=== PATIENT | female | born 1960 | race Caucasian/White ===

== ENCOUNTER 2020-12-18 17:02 | Emergency (ER) | payer SELFPAY ==
[2020-12-18 17:09] VITALS: BP 113/74; PULSE 89; RESP 16; TEMP 36.9; O2SAT 98; BMI 23.1
[2020-12-18 17:12] VITALS: BP 113/74; PULSE 80; RESP 18; O2SAT 98
--- NOTE | 2020-12-18 17:13 | XRR_ITS ---
PROCEDURE INFORMATION: Exam: XR Chest, 1 View Exam date and time: 12/18/2020 5:15 PM Age: 60 years old Clinical indication: Chest pain; Additional info: Cp TECHNIQUE: Imaging protocol: XR of the chest Views: 1 view. COMPARISON: CR Chest 1 [place] [id number] 09/24/2018 5:43 PM FINDINGS: Lungs: Unremarkable. No consolidation. Pleural spaces: Unremarkable. No pleural effusion. No pneumothorax. Heart/Mediastinum: Unremarkable. No cardiomegaly. Bones/joints: Unremarkable. XR/XR chest 1V portable [id number] IMPRESSION: No acute findings.
--- NOTE | 2020-12-18 17:13 | ECG_ITS ---
[facility] Test Date: 2020-12-18 Pat Name: Paloma Del Castillo Department: Room: Gender: Female Presentation Specialist: : [id number] Requested By: Leonard David Order Number: [id number] Anni MD: Melissa Ann M.D. Measurements Intervals [place] Rate: 75 P: 63 [place]: 166 QRS: 68 QRSD: 90 T: 75 QT: 384 QTc: 429 Interpretive Statements SINUS RHYTHM POSSIBLE RIGHT VENTRICULAR CONDUCTION DELAY [RSR (QR) IN V1/V2] Compared to ECG 09/25/2018 06:15:09 No significant changes Electronically Signed On 12-18-2020 19:25:43 MARKET MASTER by Melissa Ann M.D. [id number]
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
[2020-12-18] MEDS: ondansetron 2 mg/ML SDV 2 mL 4 MG IVP (17:33)
[2020-12-18] MEDS: aspirin 81 mg Chew Tablet 324 MG PO (17:33)
[2020-12-18 17:43] LABS: Basophils % 0.5 %; Eosinophils # 0.1 10^3/uL (0.0-0.8); Eosinophils % 2.3 %; Hematocrit 42.2 % (37.0-47.0); Hemoglobin 14.1 g/dL (11.5-15.3); Lymphocytes # 1.8 10^3/uL (0.8-4.8); Lymphocytes % 31.6 %; Mean Corpuscular HGB Conc 33.4 g/dL (30.0-36.0); Mean Corpuscular Hemoglobin 32.2 pg (28.0-34.0); Mean Corpuscular Volume 96.3 fL (81-99); Mean Platelet Volume 11.4 fL (7.4-10.4); Monocytes # 0.3 10^3/uL (0.2-0.9); Monocytes % 5.9 %; Neutrophils # 3.31 10^3/uL (1.8-7.7); Neutrophils % 59.5 %; Nucleated Red Blood Cells % 0 %; Platelet Count 248 10^3/cmm (130-400); Red Blood Count 4.38 10^6/uL (4.1-5.3); Red Cell Distribution Width 13.5 % (12.1-15.1); White Blood Count 5.6 10^3/uL (4.0-10.0)
[2020-12-18] MEDS: nitroglycerin 0.4 mg sublingual Tablet SUBLINGUAL (17:51)
[2020-12-18 17:52] LABS: D Dimer 0.52 ug/mIFEU (0-0.59)
[2020-12-18 18:04] LABS: Troponin(5th) Baseline 6 ng/L (0-10)
[2020-12-18 18:10] LABS: Urine Appearance Clear (CLEAR); Urine Color Straw (Yellow)
[2020-12-18 18:11] LABS: Add Urine Culture? No; Add Urine Microscopic? YES; Bacteria Urine TRACE /hpf; Bilirubin Urine Neg (Negative); Blood Urine 2+ (Negative); Glucose Urine UA Norm (Normal); Ketones Urine Negative (Negative); Leukocyte Esterase Urine Negative (Negative); Nitrate Urine Negative (Negative); Protein Urine Neg (Negative); RBC Urine RARE /hpf (0-2); Specific Gravity, Urine 1.005 (1.005-1.030); Squamous Epithelial Cell Urine 0-4 /hpf (0-5); Urobilinogen Urine Norm (Negative); WBC Urine 0-4 /hpf (0-5); pH Urine 5 (5-7)
[2020-12-18 18:13] LABS: Alanine Aminotransferase 15 U/L (0-33); Albumin Level 4.2 g/dL (3.5-5.2); Alcohol Level 84 mg/dL (0-10); Alkaline Phosphatase 128 IU/L (35-105); Anion Gap 14.7 (5-19); Aspartate Amino Transferase 15 U/L (0-32); Blood Urea Nitrogen 6 mg/dL (8-23); Calcium 9.1 mg/dL (8.5-10.5); Carbon Dioxide 24 mmol/L (22-29); Chloride 104 mmol/L (98-107); Globulin 2.6 g/dL (1.3-4.6); Glucose 99 mg/dL (65-115); NT Pro B Type Natriuretic Pept 106 pg/mL (0-125); Osmolality Calculated 286 mOsm/kg (285-295); Potassium 3.7 mmol/L (3.5-5.1); Sodium 139 mmol/L (136-145); Total Bilirubin 0.2 mg/dL (0.15-1.2); Total Protein 6.8 g/dL (6.6-8.7)
[2020-12-18 18:13] LABS: Amphetamines Screen Urine Negative (Negative); Barbiturates Screen Urine Negative (Negative); Benzodiazepines Screen Urine Negative (Negative); Cocaine Screen Urine Negative (Negative); Opiate Screen Urine Negative (Negative); PCP Screen Urine Negative (Negative); THC Screen Urine Negative (Negative)
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
[2020-12-18 19:12] VITALS: BP 114/67; PULSE 76
--- NOTE | 2020-12-18 19:13 | ECG_ITS ---
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 Measurements Intervals [place] Rate: 85 P: 67 IN: 151 QRS: 69 QRSD: 98 T: 77 QT: 360 QTc: 430 Interpretive Statements SINUS RHYTHM POSSIBLE RIGHT VENTRICULAR CONDUCTION DELAY [RSR (QR) IN V1/V2] MINIMAL ST DEPRESSION [0.025+ mV ST DEPRESSION] Compared to ECG 09/25/2018 06:15:09 ST (T wave) deviation now present Electronically Signed On 12-19-2020 18:40:48 FIELD IRONWORKER by Melissa Ann M.D. [email or web address] Technologieshighland community hospitalScour Preventionsumma health [facility].[employer]/store/NU/[id number] tulio
[2020-12-18 19:15] VITALS: BP 114/67; PULSE 76
--- NOTE | 2020-12-18 19:22 | PC.NURSE ---
EKG done at 1910 and shown to ER doctor
[2020-12-18 19:26] LABS: Troponin 5 2HR Delta 0 ABS# (0-10)
[2020-12-18 20:38] VITALS: BP 109/68; PULSE 86; O2SAT 96
[2020-12-18 20:51] VITALS: BP 109/68; PULSE 88; O2SAT 96
--- NOTE | 2020-12-21 12:46 | DCPLANNER ---
Addendum entered by Edilia Manuel 12/22/20 07:29: Patient called outpatient case manager back, stating that she did want to go ahead and have the stress test, and to get established with a primary care physician. Patient stated that she would like to go to [facility] for primary care at this time. optical manager will mail patient the financial underwriter applications to the patient for the hospital to fill out. optical manager will fax order for stress test to centralized scheduling. After the stress test is ordered outpatient case manager will call [facility] and schedule a follow up appointment for patient. optical manager will call patient with appointment information. Original Note: optical manager had message to speak with patient about getting established with a primary care physician, and a message to schedule an outpatient stress test for patient. optical manager called phone number [phone], unable to speak with patient, a voicemail was left for patient to return bilingual patient support caseworker phone call. optical manager can not order the stress test, due to patient not having a primary care physician, for the results to go to. optical manager will try to call patient again.
--- NOTE | 2020-12-28 08:21 | DCPLANNER ---
Patient has an out patient stress test scheduled for Monday, January 04, 2021 at 10:45. Centralized scheduling will call patient with appointment information,
--- NOTE | 2020-12-30 13:35 | DCPLANNER ---
accounts manager called [facility] to schedule a follow up appointment for patient and to get patient established with a primary care physician. Patient has a follow up appointment scheduled for December at 9:[address] Chowdhury. accounts manager called patient and gave patient the appointment information. accounts manager informed patient that she would need to call the clinic to get information on their sliding fee schedule. accounts manager gave patient the phone number to the clinic.
--- NOTE | 2021-01-19 15:30 | DCPLANNER ---
Patient had a follow up appointment scheduled for an out patient stress test - patient did not attend appointment.
== END 2020-12-18 20:51 ==
PROVIDERS: Family Medicine; Emergency Provider Emergency Medicine
DX: R07.9 Chest pain, unspecified (principal); F10.920 Alcohol use, unspecified with intoxication, uncomplicated; L03.113 Cellulitis of right upper limb
CPT/HCPCS: 71045; 73060; 80053; 80306; 80307; 81001; 83880; 84484; 85025; 85378; 93005; 96374; 99284; J2405

== ENCOUNTER 2021-03-18 14:06 | Inpatient (IN) | payer OTHER, SELFPAY ==
[2021-03-18] VITALS (8 sets, daily range): BP systolic 108–143; BP diastolic 71–83; PULSE 67–77; RESP 16–18; TEMP 36.2–36.7; O2SAT 97–98; BMI 25.7
--- NOTE | 2021-03-18 14:16 | ECG_ITS ---
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
--- NOTE | 2021-03-18 14:16 | XR_ITS ---
WS: [id number] Portable AP upright chest, 03/18/2021 Clinical Data: chest pain Comparison: Portable chest, 12/18/2020. Findings: No nodules, masses or effusions are seen. The heart is normal. The pulmonary vascularity is not increased. No pneumonia or pneumothorax is seen. Monitor leads on the chest wall. XR/XR chest 1V portable [id number] Impression: Negative chest.
[2021-03-18 14:30] LABS: Basophils % 0.3 %; Eosinophils # 0.2 10^3/uL (0.0-0.8); Eosinophils % 2.6 %; Lymphocytes # 1.9 10^3/uL (0.8-4.8); Lymphocytes % 31.9 %; Mean Corpuscular Hemoglobin 33.1 pg (28.0-34.0); Mean Corpuscular Volume 97.1 fL (81-99); Mean Platelet Volume 11.1 fL (7.4-10.4); Monocytes # 0.4 10^3/uL (0.2-0.9); Monocytes % 7.1 %; Neutrophils # 3.35 10^3/uL (1.8-7.7); Neutrophils % 57.8 %; Nucleated Red Blood Cells % 0 %; Platelet Count 284 10^3/cmm (130-400); Red Blood Count 4.84 10^6/uL (4.1-5.3); Red Cell Distribution Width 13.2 % (12.1-15.1); White Blood Count 5.8 10^3/uL (4.0-10.0)
--- NOTE | 2021-03-18 14:51 | W.ED.CHESTPA ---
HPI - Chest Pain General: Chief Complaint: Chest Pain Stated Complaint: left shoulder pain Time Seen by Provider: 03/18/21 14:07 History of Present Illness: HPI narrative: 60 yo female wtih a suspected dx CAD. SHe presenrt via EMS from home after having chest pain that began while at rest that she. She had a nitro and now her pain is completely resolved. She previously seen cardiology who is scheduled for an angiogram next week with Dr. Hartman. She has a history of COPD as well. She was recently started on isosorbide mononitrate but she did not get that filled. She is on several inhaled medications as well she does continue to smoke she does not have diabetes. MD complaint: chest pain Onset (ago): week(s) Timing of current episode: episodic Prior episodes: Yes Onset: during rest Pain location: substernal and left chest Pain radiation: left shoulder Severity: moderate Quality: tightness and heaviness Relieving factors: nitroglycerin and rest Exacerbating factors: exertion Associated symptoms: Reports diaphoresis, dyspnea and nausea; Deny abdominal pain, fever(s), leg edema, palpitations, sense of impending doom, syncope or vomiting Treatment prior to arrival: aspirin and nitroglycerin Review of Systems Const: Reports: diaphoresis; Denies: fever(s) ENMT: Denies: throat pain, ear or mastoid pain, nasal discharge or nasal congestion Card: Denies: palpitations or syncope Resp: Reports: dyspnea GI: Reports: nausea; Denies: abdominal pain or vomiting : Denies: flank pain, difficulty voiding, dysuria, urinary frequency or urinary urgency Skin/Breast: Denies: rash or pruritus PFS ED PFSH: Social History Smoking and tobacco status: current every day smoker cigarettes Packs smoked per day: 0.5 Alcohol intake: current Alcohol intake frequency: 3 or more drinks per day Alcohol type: beer Physical Exam Const: COMMON NORMALS: no acute distress GENERAL APPEARANCE: cooperative and comfortable ORIENTATION/CONSCIOUSNESS: Yes awake, Yes oriented to person, Yes oriented to place and Yes oriented to time HENMT: COMMON NORMALS: normocephalic, atraumatic and hearing grossly normal bilaterally HEAD & SCALP: normocephalic and atraumatic Neck/C-Spine: COMMON NORMALS: no JVD Resp: COMMON NORMALS: normal respiratory effort, No retractions, No use of accessory muscles and clear to auscultation bilaterally AUSCULTATION: clear to auscultation bilaterally Cardio: COMMON NORMALS: no JVD, regular rate, regular rhythm and No murmurs present (Cardio) RATE: regular rate RHYTHM: regular rhythm GI: COMMON NORMALS: Soft to palpation and No hepatosplenomegaly present AUSCULTATION: Yes normoactive bowel sounds PALPATION: Yes Soft to palpation, No Tenderness to palpation present (GI), No Guarding due to palpation present (GI) and Yes No hepatosplenomegaly present Extremity: COMMON NORMALS: normal to inspection, capillary refill normal, no clubbing, cyanosis or edema, no calf tenderness and no pedal edema Neuro: SENSORIUM/ORIENTATION: Yes oriented to person, Yes oriented to place and Yes oriented to time Skin: COMMON NORMALS: no rashes or lesions noted GENERAL SKIN EXAM: no rashes or lesions noted Course Vital Signs: Vital signs: Vital Signs Pulse Rate 76 03/18/21 14:13 Respiratory Rate 18 03/18/21 14:13 Blood Pressure 116/77 03/18/21 14:13 Pulse Oximetry 98 03/18/21 14:13 MDM - Chest Pain MDM Narrative: Medical decision making narrative: EKG does not show anything acute first troponin is negative discussed with Dr. Arita. We will go ahead and admit her since she is scheduled for angiogram and continues to have increasing episodes of angina. Will admit to the hospitalist consulting for him. Lab Data: Labs: Lab Results 03/18/21 03/18/21 03/18/21 Range/Units 14:22 14:22 14:22 WBC 5.8 (4.0-10.0) 10^3/ uL RBC 4.84 (4.1-5.3) 10^6/u L Hgb 16.0 H (11.5-15.3) g/dL Hct 47.0 (37.0-47.0) % MCV 97.1 (81-99) fL MCH 33.1 (28.0-34.0) pg MCHC 34.0 (30.0-36.0) g/dL RDW 13.2 (12.1-15.1) % Plt Count 284 (130-400) 10^3/c mm MPV 11.1 H (7.4-10.4) fL Neut % (Auto) 57.8 % Lymph % (Auto) 31.9 % Ada % (Auto) 7.1 % Eos % (Auto) 2.6 % Baso % (Auto) 0.3 % Neut # (Auto) 3.35 (1.8-7.7) 10^3/u L Lymph # (Auto) 1.9 (0.8-4.8) 10^3/u L Ada # (Auto) 0.4 (0.2-0.9) 10^3/u L Eos # (Auto) 0.2 (0.0-0.8) 10^3/u L Baso # (Auto) 0.0 (0.0-0.1) 10^3/u L Nucleated RBC % (a uto) 0 % Nucleated RBCs # 0.0 /100WBC Sodium 138 (136-145) mmol/L Potassium 4.5 (3.5-5.1) mmol/L Chloride 101 (98-107) mmol/L Carbon Dioxide 21 L (22-29) mmol/L Anion Gap 20.5 H (5-19) BUN 8 (8-23) mg/dL Creatinine 0.6 (0.5-0.9) mg/dL GFR Calculation 101.3 (90-130) mL/min Glucose 73 (65-115) mg/dL Calculated Osmolal ity 283 L (285-295) mOsm/k g Calcium 9.2 (8.5-10.5) mg/dL Total Bilirubin 0.2 (0.15-1.2) mg/dL AST 15 (0-32) U/L ALT 12 (0-33) U/L Alkaline Phosphata se 127 H (35-105) IU/L Creatine Kinase 57 (26-192) U/L Troponin T Baselin e 6 (0-10) ng/L Total Protein 7.6 (6.6-8.7) g/dL Albumin 4.9 (3.5-5.2) g/dL Globulin 2.7 (1.3-4.6) g/dL Discharge Plan Discharge Patient Disposition: Admitted As Inpatient Clinical Impression: Unstable angina pectoris, COPD (chronic obstructive pulmonary disease) Condition: Stable Coding Level of Care Code ED Commanding Officer Traffic Division for Kanwal Chatman
[2021-03-18] MEDS: nitroglycerin 1 gm/inch oint Pkt 0.5 INCH TOPICAL (14:52)
[2021-03-18 14:54] LABS: Troponin(5th) Baseline 6 ng/L (0-10)
[2021-03-18 14:55] LABS: Alanine Aminotransferase 12 U/L (0-33); Albumin Level 4.9 g/dL (3.5-5.2); Alkaline Phosphatase 127 IU/L (35-105); Anion Gap 20.5 (5-19); Aspartate Amino Transferase 15 U/L (0-32); Blood Urea Nitrogen 8 mg/dL (8-23); Calcium 9.2 mg/dL (8.5-10.5); Carbon Dioxide 21 mmol/L (22-29); Chloride 101 mmol/L (98-107); Creatine Phosphokinase 57 U/L (26-192); Globulin 2.7 g/dL (1.3-4.6); Glomerular Filtration Rate 101.3 mL/min (90-130); Glucose 73 mg/dL (65-115); Osmolality Calculated 283 mOsm/kg (285-295); Potassium 4.5 mmol/L (3.5-5.1); Sodium 138 mmol/L (136-145); Total Bilirubin 0.2 mg/dL (0.15-1.2); Total Protein 7.6 g/dL (6.6-8.7)
[2021-03-18] MEDS: acetaminophen 500 mg Tablet 1000 MG PO (15:29)
--- NOTE | 2021-03-18 15:33 | PC.PHAR ---
PT STATES SHE TAKES CARE OF HER OWN MEDICATIONS-PT STATES SHE WAS SUPPOSE TO GET RXS FROM DR REYES BUT STATES THEY WERENT SENT TO THE PHARMACY [facility] STATES THEY NEVER GOT AN RX -PT HASNT PICKED UP HER ADVAIR FROM THE PHARMACY YET-PT VERIFIED MEDICATIONS ENTERED
--- NOTE | 2021-03-18 16:03 | PC.NURSE ---
Floor unable to take report at this time.
--- NOTE | 2021-03-18 16:16 | ECG_ITS ---
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 Measurements Intervals [place] Rate: 64 P: 69 [place]: 158 QRS: 66 QRSD: 96 T: 71 QT: 395 QTc: 409 Interpretive Statements SINUS RHYTHM MINIMAL ST DEPRESSION [0.025+ mV ST DEPRESSION] Compared to ECG 03/18/2021 14:13:35 ST (T wave) deviation now present Electronically Signed On 03-22-2021 18:42:59 CDT by Melissa Ann M.D. [email or web address] [facility].Smarter [email or web address]/store/[id number]
--- NOTE | 2021-03-18 16:18 | P.HP_ITS ---
Providers/Chief Complaint Admitting Physician: Adrián Khan MD Primary Care Provider: Jodie Stapleton MD Chief Complaint: left shoulder pain History of Present Illness Paloma Del Castillo is a 60 year old female with past medical history of COPD, unstable angina followed up with Dr. Rojas. She saw Dr. Arita yesterday and the plan was to take her to cardiac cath on coming Sunday with advised to come to the ER if she has any chest pain over the weekend. Today morning when patient woke up she had pain in between her shoulder blades going up to jaw not subsiding for because with nitro so she presented to the ER. In the ER she was started on a nitro paste still continued to have jaw pain on and off. Patient denies any nausea, vomiting, headache, dizziness, palpitation, difficulty in breathing. Patient has not had these, symptoms in the past. For the first time the pain started around 4 days ago. She denies any significant family history of heart problems. She is a current smoker and smokes up to 2 packs a day and trying to cut down. She states she consumes half a can of liquor every day. She denies of having any symptoms in the past related to alcohol withdrawal or alcohol seizures. On examination she was saturating 97% on room air with heart rate of 74 bpm blo od pressure 110 systolic. She had a Nitropaste on. Blood work in the ER showed white and a 5.8, hemoglobin of 16, platelet count of 284, sodium 138, chloride of 101, carbon dioxide of 21, creatinine 0.6, AST/ALT of 15/12, alkaline phosphatase of 127, baseline troponin of 6. Patient's U tox in November was negative with a positive alcohol of 84 in November. EKG in the ER shows normal sinus rhythm at [address]-T changes in inferior lateral leads Review of Systems General: Reports: 10 or more systems reviewed and unremarkable except in HPI and below Const: Denies: fever(s), chills, body aches, change in appetite, change in weight, malaise, night sweats, diaphoresis, change in sleep pattern, daytime sleepiness or snoring Eyes: Denies: change in vision, blurry vision, photophobia, eye discomfort or eye discharge ENMT: Denies: throat pain, enlarged tonsils, hoarseness, mouth pain, oral sores, dry mouth, tinnitus, nasal congestion or post nasal drip Card: Denies: chest pain, palpitations, irregular heart rhythm, edema, swelling of feet/ankles, lightheadedness, syncope, pre-syncope, dyspnea on exertion, orthopnea, leg pain with exertion or acrocyanosis Resp: Denies: dyspnea, productive cough, non-productive cough, wheezing, stridor, pain on inspiration, change in phlegm color, hemoptysis or chest congestion GI: Denies: abdominal pain, nausea, vomiting, hematemesis, coffee ground emesis, dysphagia, heartburn, diarrhea, constipation, bloating, GI cramping, change in bowel habits, pain on defecation, hematochezia or melena : Denies: flank pain, dysuria, urinary frequency, urinary urgency, urinary hesitancy, nocturia or hematuria Musc: Denies: neck pain, back pain, extremity pain, joint pain, joint swelling, joint redness, joint stiffness or limited range of motion Neuro: Denies: headache(s), numbness in extremities, weakness in extremities, sensory changes, lack of coordination, difficulty walking, frequent falls, dizziness, vertigo, confusion, Slurred speech present, difficulty communicating thoughts or seizure-like activity Psych: Denies: anxiety, depression, mood swings, panic attacks, hopelessness or irritability Endo: Denies: polyuria, polydipsia, tired all the time, cold intolerance, excessive sweating, flushing or heat intolerance Keshav/Lymph: Denies: easy bruising or easy bleeding All/Imm: Denies: tongue swelling, facial swelling or acute wheezing Medications/Allergies Home Medications Medication Instructions Recorded Confirmed Last Taken Type nitroglycerin [Nitrostat] 0.4 mg SUBLINGUAL Q5M PRN 12/18/20 03/18/21 03/18/21 History albuterol sulfate 90 mcg/actuation 1 inh INHALATION QID PRN 03/17/21 03/18/21 Unknown History aerosol inhaler hydroxyzine pamoate 25 mg capsule 25 mg PO Q4H PRN 03/17/21 03/18/21 03/17/21 History isosorbide mononitrate 30 mg 30 mg PO QAM 03/17/21 03/18/21 03/17/21 History tablet,extended release 24 hr fluticasone propion-salmeterol 1 ea INHALATION BID 03/18/21 03/18/21 Unknown History [Advair Diskus] ibuprofen 800 mg PO PRN 03/18/21 03/18/21 03/17/21 History paroxetine HCl 20 mg PO BEDTIME 03/18/21 03/18/21 03/17/21 History sumatriptan succinate 50 mg PO PRN MDD 2 TABS 03/18/21 03/18/21 Unknown History Allergies Allergy/AdvReac Type Severity Reaction Status Date / Time No Known Allergies Allergy Verified 03/18/21 15:31 PFSH Acute PFSH: Medical History COPD (chronic obstructive pulmonary disease) Smoker Family History (Updated 03/18/21 @ 16:21 by Adrián Khan MD) Denies family history of Diabetes CAD (coronary artery disease) Cancer Social History (Updated 03/18/21 @ 16:21 by Adrián Khan MD) Smoking and tobacco status: current every day smoker cigarettes Packs smoked per day: 0.5 Alcohol intake: current Alcohol intake frequency: 3 or more drinks per day Alcohol type: beer Substance/Drug Use: unknown Lives independently: Yes Household members: friend(s) Housing: Apartment Vitals/I&O/Wt Last Vital Signs Pulse 76 03/18/21 14:13 Resp 18 03/18/21 14:13 BP 116/77 03/18/21 14:13 Pulse Ox 98 03/18/21 14:13 Weight last 48 hrs Weight 68.039 kg Physical Exam Narrative: EXAM NARRATIVE: General: No acute distress, AO x3 HEENT: PERRLA, pupils bilaterally equal and reactive Chest: Normal vesicular breath sounds, no added sounds, equal good air entry bilaterally CVS: S1-S2 regular, no murmurs, no tachycardia, no gallops, no rubs Abdomen: Soft, nontender, no organomegaly, bowel sounds present Neuro: No focal deficits, no facial deformity, AO x3, power 5/5 in all limbs Data : 03/18/21 14:22 03/18/21 14:22 A&P Assessment and plan (1) Unstable angina pectoris: Status: Acute (2) COPD (chronic obstructive pulmonary disease): Status: Acute (3) Smoker: Status: Acute Additional A&P Information Unstable angina: Followed up with cardiology. has been informed. Cycle troponins. Admit with telemetry. Aspirin 325 mg stat, Plavix 70 mg stat, atorvastatin 80 mg stat. Followed by aspirin 80 Sebastian 1 mg daily, Plavix 75 mg daily, atorvastatin 80 mg daily. Check HbA1c, lipid panel, urine drug screen, urinalysis, echocardiogram, iron panel, TSH. Full dose Lovenox 1 mg/kg body weight every 12. Nitropaste. Morphine for pain. Oxygen supplementation giving saturation over 94%. N.p.o. after midnight for possible cardiac catheterization tomorrow. COPD: Continue home dose of Advair. Patient is not an exacerbation for now. Continue home dose of paroxetine. Chronic smoker: Discussed in detail regarding need of smoking abstinence for now given high possibility of CAD. Daily alcohol use: Start patient on CIWA protocol. Thiamine, folic acid. Check iron panel, vitamin B12, folate levels. Full code. Full dose Lovenox will also for DVT prophylaxis. Cardiac diet. N.p.o. after midnight. Attestations Medical Necessity Statement*: Admission for more than 2 midnights for significant unstable angina needing cardiac catheterization. Time Spent in Patient Care: Greater than 35 minutes (>than 50% of time spent in counselling and/or direct pt care on unit) . Coding Level of Care Code Acute Hog Raiser for Kanwal Chatman Diagnoses Unstable angina pectoris I20.0 COPD (chronic obstructive pulmonary disease) J44.9 Smoker F17.200
[2021-03-18 16:49] LABS: Procalcitonin 0.02 ng/mL (0-0.5); Thyroid Stimulating Hormone 1.75 uIU/mL (0.27-4.20)
[2021-03-18 16:55] LABS: INR 0.93 (0.8-1.2)
[2021-03-18 16:59] LABS: Alcohol Level 55 mg/dL (0-10); Iron 120 ug/dL (37-145); Percent Saturation 36.6 % (20-50); Total Iron Binding Capacity 327 mcg/dl; Unsaturated Iron Binding 207 ug/dL (112-347)
[2021-03-18 17:36] LABS: Troponin 5 2HR Delta 0 ABS# (0-10)
[2021-03-18] MEDS: sodium chloride 0.9% 1,000 ML 100 ML IV (18:24)
[2021-03-18] MEDS: famotidine 20 mg Tablet PO (18:26)
--- NOTE | 2021-03-18 18:31 | PM.CONSULT ---
Providers/Reason For Consult Consulting Physican/Specialty*: Isaac Hartman MD/ Cardiology Reason for Consult*: Unstable angina Requesting Physcian: Dr Guan Attending Physician: Adrián Khan MD Primary Care Provider: Jodie Stapleton MD History of Present Illness History of Present Illness Paloma Del Castillo is a 60 year old female with past medical history of COPD, current smoker who I saw in the office yesterday for chest pain and was planning to perform coronary angiography coming Sunday has presented to ER with severe is chest pain. According to the patient she has been noticing chest discomfort symptoms over the last few months that have worsened within the last 1 week or so. She has been using several nitros. Couple of nights ago she woke up with continued chest discomfort for 15 minutes. They were relieved after 3 nitros. Today nitros did not relieve pain and she decided to come to the ER. Her EKG does not show significant ST changes. Troponin is negative so far. Review of Systems Narrative: CONSTITUTIONAL: No fever chills weight loss or gain or night sweats. [] HEENT: Normocephalic, atraumatic.[] RESPIRATORY: No cough, sputum, hemoptysis or wheezing.[] CARDIOVASCULAR: Has chest pain and shortness of breath, no PND, orthopnea, lower extremity edema, presyncope or syncope. [] GI: no nausea vomiting diarrhea. [] MOTORCYCLE SERVICE TECHNICIAN: No numbness, tingling, weakness or loss of function in any part of the body. [] MUSCULOSKELETAL: No knee or joint pain or rashes. [] Meds/Allergies Home Medications and Allergies Home Medications Medication Instructions Recorded Confirmed Last Taken Type nitroglycerin [Nitrostat] 0.4 mg SUBLINGUAL Q5M PRN 12/18/20 03/18/21 03/18/21 History albuterol sulfate 90 mcg/actuation 1 inh INHALATION QID PRN 03/17/21 03/18/21 Unknown History aerosol inhaler hydroxyzine pamoate 25 mg capsule 25 mg PO Q4H PRN 03/17/21 03/18/21 03/17/21 History isosorbide mononitrate 30 mg 30 mg PO QAM 03/17/21 03/18/21 03/17/21 History tablet,extended release 24 hr Advair Diskus 1 ea INHALATION BID 03/18/21 03/18/21 Unknown History ibuprofen 800 mg PO PRN 03/18/21 03/18/21 03/17/21 History paroxetine HCl 20 mg PO BEDTIME 03/18/21 03/18/21 03/17/21 History sumatriptan succinate 50 mg PO PRN MDD 2 TABS 03/18/21 03/18/21 Unknown History amlodipine 5 mg PO DAILY #30 tab 03/19/21 Unknown Rx aspirin 81 mg PO DAILY #30 tab 03/19/21 Unknown Rx famotidine 20 mg PO BID #60 tab 03/19/21 Unknown Rx multivitamin with folic acid 1 tab PO DAILY #30 tab 03/19/21 Unknown Rx [Thera] Allergies Allergy/AdvReac Type Severity Reaction Status Date / Time No Known Allergies Allergy Verified 03/18/21 15:31 PFSH Acute PFSH: Medical History COPD (chronic obstructive pulmonary disease) Smoker Family History Denies family history of Diabetes CAD (coronary artery disease) Cancer Social History Smoking and tobacco status: current every day smoker cigarettes Packs smoked per day: 0.5 Alcohol intake: current Alcohol intake frequency: 3 or more drinks per day Alcohol type: beer Lives independently: Yes Household members: friend(s) Housing: Apartment Vitals/I&O/Wt Last Vital Signs Pulse 74 03/18/21 16:19 Resp 16 03/18/21 16:19 BP 108/71 03/18/21 16:19 Pulse Ox 97 03/18/21 16:19 Weight last 48 hrs Weight 150 lb Physical Exam Narrative: EXAM NARRATIVE: GENERAL: Patient is alert, awake and oriented x3. [] NECK: No jugular vein distension. [] HEENT: No cyanosis. No icterus. No pallor. [] HEART: Regular S1 and S2. No murmur, rub or gallop. [] LUNGS: Clear to auscultate bilaterally. [] ABDOMEN: Soft, nontender and nondistended. Positive bowel sounds. No guarding, rebound or tenderness. [] CENTRAL NERVOUS SYSTEM: Grossly nonfocal. [] EXTREMITIES: Lower extremities with 1+ edema bilaterally. Pulses palpable in the lower extremities, both dorsalis pedis and posterior tibial. [] A&P Assessment and plan (1) Unstable angina pectoris: Status: Acute (2) Smoker: Status: Acute (3) COPD (chronic obstructive pulmonary disease): Status: Acute Patient has been describing significant typical worsening chest pain consistent with unstable angina. She has used multiple nitros over the last few days. We will plan on performing coronary angiogram tomorrow. Risks and benefits of the procedure have been described. Patient understands the risks and benefits and wants to proceed with the procedure. Trend troponins. Obtain echocardiogram. N.p.o. past midnight Loaded with aspirin and Plavix. Start Lovenox. Thank you for involving us with care of this patient. We will continue to follow. Please call with questions. Coding Level of Care Code Acute Controller Mechanic for Kanwal Chatman Diagnoses Unstable angina pectoris I20.0 Smoker F17.200 COPD (chronic obstructive pulmonary disease) J44.9
--- NOTE | 2021-03-18 19:23 | PC.NURSE ---
[facility]
[2021-03-18] MEDS: sodium chloride 0.9% 1,000 ML 50 ML IV (19:26)
--- NOTE | 2021-03-18 20:16 | ECG_ITS ---
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 Measurements Intervals [place] Rate: 60 P: 73 DC: 158 QRS: 69 QRSD: 89 T: 75 QT: 406 QTc: 408 Interpretive Statements SINUS RHYTHM POSSIBLE RIGHT VENTRICULAR CONDUCTION DELAY [RSR (QR) IN V1/V2] Compared to ECG 03/18/2021 17:57:18 ST (T wave) deviation no longer present Electronically Signed On 03-22-2021 18:42:48 CDT by Melissa Ann M.D. [email or web address].[id number]
[2021-03-18] MEDS: PARoxetine 20 mg Tablet PO (21:21)
[2021-03-18] MEDS: atorvastatin 40 mg Tablet 80 MG PO (21:27)
[2021-03-18 22:33] LABS: Troponin 5 6HR Delta 0 ng/L (0-12)
[2021-03-19] VITALS: BP 127/82; PULSE 75; RESP 18; TEMP 36.7; O2SAT 97
[2021-03-19 02:55] LABS: Amphetamines Screen Urine Negative (Negative); Barbiturates Screen Urine Negative (Negative); Benzodiazepines Screen Urine Negative (Negative); Cocaine Screen Urine Negative (Negative); Opiate Screen Urine Negative (Negative); PCP Screen Urine Negative (Negative); THC Screen Urine Negative (Negative)
[2021-03-19 03:02] LABS: Potassium, Radom Urine 32 mmol/L; Urine Random Chloride 80 mmol/L; Urine Random Sodium 114 mmol/L
[2021-03-19 03:20] LABS: Bilirubin Urine Neg (Negative); Blood Urine 2+ (Negative); Glucose Urine UA Norm (Normal); Ketones Urine Negative (Negative); Leukocyte Esterase Urine Negative (Negative); Nitrate Urine Negative (Negative); Protein Urine Neg (Negative); RBC Urine 0-4 /hpf (0-2); Specific Gravity, Urine 1.015 (1.005-1.030); Urine Appearance Clear (CLEAR); Urine Color Yellow (Yellow); Urobilinogen Urine 1 mg/dL (Negative); pH Urine 5 (5-7)
[2021-03-19 03:21] LABS: Add Urine Culture? No; Bacteria Urine TRACE /hpf
[2021-03-19 04:00] VITALS: BP 136/81; PULSE 58; RESP 18; TEMP 36.7; O2SAT 98
[2021-03-19] MEDS: enoxaparin 80 mg/0.8 mL Syringe 70 MG SUBCUT (04:52)
[2021-03-19 06:00] VITALS: PULSE 86
--- NOTE | 2021-03-19 06:00 | USCV_ITS ---
Paloma Del Castillo Age: 60 Gender: F : 1960 Exam Date: 03/19/2021 13:46 Ordering Phys: Adrián Khan MD Technologist: Pauline Garcia Exam Location: [facility] [place] Indication: Chest pain BP: 136 / 81 HR: 68 Rhythm: Sinus Technical Quality: Fair MEASUREMENTS (Male / Female) Normal Values 2D ECHO LV Diastolic Diameter PLAX 3.2 cm 4.2 - 5.9 / 3.9 - 5.3 cm LV Systolic Diameter PLAX 1.4 cm LV Chamber Size 3.1 cm IVS Diastolic Thickness 1.3 cm 0.6 - 1.0 / 0.6 - 0.9 cm IVS Systolic Thickness 1.7 cm LVPW Diastolic Thickness 1.0 cm 0.6 - 1.0 / 0.6 - 0.9 cm LVPW Systolic Thickness 1.4 cm RV Chamber Size 1.7 cm LVOT Diameter 1.8 cm LV Ejection Fraction 2D Teich 86.9 % LV Ejection Fraction MOD 2C 72.8 % LV Ejection Fraction 2C AL 76.6 % LA Diameter 2.8 cm LA Width 2.2 cm LA Height 4.8 cm RA Width 2.5 cm RA Height 4.3 cm M-MODE LV Diastolic Diameter MM 5.6 cm 4.2 - 5.9 / 3.9 - 5.3 cm LV Systolic Diameter MM 3.5 cm LV Ejection Fraction MM Teich 67.0 % IVS Diastolic Thickness MM 0.8 cm 0.6 - 1.0 / 0.6 - 0.9 cm IVS Systolic Thickness MM 1.0 cm LVPW Diastolic Thickness MM 0.8 cm 0.6 - 1.0 / 0.6 - 0.9 cm LVPW Systolic Thickness MM 1.5 cm RV Diastolic Diameter MM 0.8 cm Aortic Annulus Diameter 3.2 cm LA Ao Ratio MM 1.2 MV E Point Septal Separation 0.7 cm DOPPLER AV Peak Velocity 144.0 cm/s LVOT Peak Velocity 143.0 cm/s AV Area Cont Eq vti 2.6 cm squared AV Area Cont Eq pk 2.5 cm squared MV Area PHT 3.2 cm squared Mitral E to A Ratio 0.8 MV E' Velocity 41.0 cm/s Mitral E to MV E' Ratio 8.6 Mitral E to LV E' Lateral Ratio 8.3 Mitral E to LV E' Septal Ratio 9.0 TR Peak Velocity 186.0 cm/s TR Peak Gradient 13.8 mmHg TV Peak E Velocity 46.0 cm/s Right Atrial Pressure 3.0 mmHg Pulmonary Artery Systolic Pressu 16.8 mmHg PV Peak Velocity 88.0 cm/s RV Acceleration Time 0.1 s RV Ejection Time 0.2 s RV AcT/ET 0.4 FINDINGS Left Ventricle Normal left ventricular size. LV systolic function is normal with EF of 55-60%. No regional wall motion abnormalities are noted. Grade 1 diastolic dysfunction Right Ventricle The right ventricle is normal in size and function. Right Atrium The right atrium is normal in size. Left Atrium The left atrium is normal in size. Mitral Valve Structurally normal mitral valve without significant stenosis or prolapse. There is trace mitral regurgitation. Aortic Valve Structurally normal aortic valve without significant sclerosis or stenosis. There is no aortic regurgitation. Tricuspid Valve Structurally normal tricuspid valve without significant stenosis. Trace tricuspid regurgitation. Insufficient TR jet to calculate RVSP Pulmonic Valve Structurally normal pulmonic valve without significant stenosis. There is no pulmonic regurgitation. Pericardium Normal pericardium without effusion. Aorta Normal ascending aorta dimension. CONCLUSIONS LV systolic function is normal with EF of 55-60% Grade 1 diastolic dysfunction Trace mitral regurgitation Trace tricuspid regurgitation. No comparison studies are available Isaac Hartman MD (Electronically Signed) Final Date: 20 Mar 2021 22:29 S
[2021-03-19] MEDS: isosorbide mononitrate ER 30 mg Tablet PO (06:40)
--- NOTE | 2021-03-19 06:57 | XACV_ITS ---
Exam Room: [facility] Ht: 163 cm Wt: 75 kg BSA: 1.87 m2 Gender: Female : 1960 Any Known Allergies: No known allergies Exam Priority: Routine Procedure(s): Procedure Description: Diagnostic procedure Procedure Description: Left Heart Catheterization Procedure Description: Left ventriculography Procedure Description: Coronary Angiography Diagnostic Cath Status: Urgent Diagnostic Findings * No disease noted in the Left Main, Left Anterior Descending, Right, or Circumflex coronary arteries. * Coronary angiography shows right dominance. Conclusions 1. No disease noted in the Left Main, Left Anterior Descending, Right, or Circumflex coronary arteries. 2. Normal left ventricular systolic function. Ejection fraction of 55%. Recommendations * Chest pain likely secondary to vasospastic angina vs microvascular dysfunction. * Will recommend adding amlodipine and Imdur as patient has untreated hypertension. * Order echocardiogram. * Outpatient cardiology followup. Interventional RX Recommendation: medical therapy and/or counseling Diagnostic RX Recommendation: medical therapy and/or counseling Ventriculography Ejection Fraction: 55.0 % Pressures Phase:Rest AO : 126 / 81 ( 100 ) @ 7:00:00 AM 143 / 85 ( 111 ) @ 7:07:00 AM 139 / 79 ( 107 ) @ 7:07:00 AM 135 / 80 ( 105 ) @ 7:08:00 AM LV : 122 / 20 / 17 @ 7:06:00 AM 143 / 6 / 26 @ 7:07:00 AM 143 / 4 / 27 @ 7:07:00 AM Valves Phase:DefaultPhase AV : 0.0 @ 8:16:44 AM AV Mean Gradient: 0.0 @ 8:16:44 AM Clinical Evaluation EBL: 5mL-10mL Procedural Details Procedure Consent Obtained. Pre-Procedure Time Out. Identified patient by full name and date of as verbalized by the patient/guarantor. Does the consent match the physician's order: Yes. Accurate & Complete Informed Consent: Yes. Inpatient/Outpatient History & Physical on Chart: Yes. If H&P is completed, is and addenduem needed: No; If yes, is the addendum complete: N/A. Visualize and Verify Site with Patient/Guarantor: N/A. Relevant Radiology Images available: N/A. Pre-op teaching completed and patient verbalized understanding. The risks, benefits, and alternatives of sedation and/or procedure were discussed by physician. The patient agrees to continue. Procedure started. Correct patient, site and procedure confirmed by cath team. PERRLA. 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 Lungs clear x 5 lobes. IV Site on Arrival: 20 gauge in the left anticubital. IV Fluids: 0.9% NaCl at KVO. 0 mL infused prior to labor relations specialist. Pre Procedural Pulses: bilateral radial was 3+. Oxygen started at 2liters/min via nasal canula. bilateral groins was prepped with chloroprep then draped in the usual sterile fashion. right radial was prepped with chloroprep then draped in the usual sterile fashion. Baseline sample Acquired. HR: 58 BPM. Physician arrived. Equipment: 6F - Radial. Cardiac Cath Pack. ACIST Manifold Kit Model BT 2000. Heparinized Saline (2 units/mL), 1000 mL bag. Physician scrubbed in. Immediate Pre-Procedure Time Out. Correct Patient: Yes; Correct Procedure: Yes; Correct Site: Yes; Correct Patient Position: Yes; Correct Supplies: Yes; Dried Flammable Prep: Yes; Blood Products Available: N/A;. Lidocaine 1% infiltrated to the right radial. Arterial access obtained. A 5 malian TIG catheter in over wire. Multiple views taken of left coronary artery. Catheter removed over the exchange wire. A 5 malian Angled Pig catheter in over wire. EDP Sample taken: LV 122/20,17; HR: 79 BPM; SpO2: 97%. LV gram performed in WU @ 10 mL/second for a total of 30 mL. EDP Sample taken: LV 143/6,26; HR: 80 BPM; SpO2: 96%. Pullback taken: LV 143/4,27; AO 143/85(111); Mean: 0mmHg, Peak to Peak: 0mmHg, SEP: 18sec/min; HR: 80 BPM; SpO2: 96%. Catheter removed over the exchange wire. Physician scrubbed out. A TR Band was successful obtaining hemostatsis at the Right Radial artery insertion site. TR band placed. Hemostasis obtained. Post Procedure: Pulses reassessed and unchanged. PERRLA. 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 No VTE prophylaxis required. Medication's Wasted: Lidocaine 1% = 18 mL. Medication's Wasted: Nitro = 49.8 mg. Medication's Wasted: Heparin = 1000 units. Total IV fluids: 50 mL. Contrast type used: Omnipaque 300 mgI/mL, 500 mL bottle. Post-op diagnosis: non obstructive CAD. [facility] [place] Clinical Fraility Score: 3: Managing Well. [employer] Indications: Worsening Angina. Chest Pain Symptom Assessment: Typical Angina Symptoms. Cardiovascular Instability: No. Complications: none. Estimated blood loss: 5mL-10mL. Procedure completed. Patient transferred by wheelchair to 1st floor. Vital chart was stopped. Access Site Site: Right Radial artery Sheath Size: 6 Fr Hemostasis Method: TR Band Hemostasis Success: Successful Procedure Medications Start: 7:39 AM Stop: 7:39 AM Medication: Fentanyl Amount: 50 mcg Route: I.V. Start: 7:54 AM Stop: 7:54 AM Medication: Versed Amount: 1 mg Route: I.V. Start: 7:59 AM Stop: 7:59 AM Medication: Nitrogylcerin Amount: 200 mcg Route: I.A. Start: 8:02 AM Stop: 8:02 AM Medication: Fentanyl Amount: 50 mcg Route: I.V. Start: 7:40 AM Stop: 7:40 AM Medication: Versed Amount: 1 mg Route: I.V. I, the attending physician, have reviewed and verified all procedure medications. Yes, all medications given per verbal order History/Risk Factors Hypertension: No Dyslipidemia: No Peripheral Arterial Disease (PAD): No Myocardial Infarction (RI): No Obesity: No Renal Disease: No Tobacco Use: Current/Recent(w/in 1 year) Prior Interventions PCI: No CABG: No Valve Surgery: No Report Signatures Finalized by Isaac Hartman MD on 03/19/2021 04:23 PM
[2021-03-19 06:58] LABS: Basophils % 0.6 %; Eosinophils # 0.2 10^3/uL (0.0-0.8); Hematocrit 43.1 % (37.0-47.0); Hemoglobin 14.1 g/dL (11.5-15.3); Lymphocytes # 1.5 10^3/uL (0.8-4.8); Lymphocytes % 27.6 %; Mean Corpuscular HGB Conc 32.7 g/dL (30.0-36.0); Mean Corpuscular Hemoglobin 32.6 pg (28.0-34.0); Mean Corpuscular Volume 99.5 fL (81-99); Mean Platelet Volume 11.1 fL (7.4-10.4); Monocytes # 0.4 10^3/uL (0.2-0.9); Monocytes % 6.8 %; Neutrophils # 3.26 10^3/uL (1.8-7.7); Neutrophils % 61.6 %; Nucleated Red Blood Cells % 0 %; Platelet Count 240 10^3/cmm (130-400); Red Blood Count 4.33 10^6/uL (4.1-5.3); Red Cell Distribution Width 13.2 % (12.1-15.1); White Blood Count 5.3 10^3/uL (4.0-10.0)
[2021-03-19] MEDS: diphenhydrAMINE 50 mg Capsule PO (07:11)
--- NOTE | 2021-03-19 07:27 | PC.NURSE ---
Patient to laboratory chemist at this time. Patient is A&Ox3. Respirations even and non labored on room air.
--- NOTE | 2021-03-19 07:46 | W.PM.OPSUD ---
Surgery/Procedure H&P Update DATE OF PROCEDURE: March 19, 2021 DATE H&P PERFORMED: 03/18/21 H&P UPDATE INFORMATION: I have reviewed H&P completed within last 30 days, I have examined patient prior to procedure and No changes to prior documentation PREOP DIAGNOSIS: Unstable angina PRIMARY INDICATION FOR PROCEDURE: Unstable angina PLANNED PROCEDURE: Operation Date: 03/19/21 07:30 Proposed Procedures p Cardiac Catheterization(Left) - Isaac Hartman M.D Possible percutaneous coronary intervention PATIENT REASSESSED PRIOR TO SEDATION, WITH NO CHANGE NOTED: Yes PHYSICAL EXAM: alert, oriented x 3, clear to auscultation bilaterally and regular rate & rhythm AIRWAY EVAL/ANESTHESIA PLAN: ASA III, Monitored Anesthesia, Local Anesthesia, Risks, benefits & alternatives of sedation and/or procedure discussed and Patient agrees to continue as planned
[2021-03-19 07:49] LABS: Alanine Aminotransferase 10 U/L (0-33); Alkaline Phosphatase 108 IU/L (35-105); Anion Gap 15.2 (5-19); Aspartate Amino Transferase 13 U/L (0-32); Blood Urea Nitrogen 13 mg/dL (8-23); Calcium 8.7 mg/dL (8.5-10.5); Carbon Dioxide 25 mmol/L (22-29); Chloride 104 mmol/L (98-107); Cholesterol 155 mg/dL (0-200); Globulin 2.5 g/dL (1.3-4.6); Glucose 91 mg/dL (65-115); HDL Cholesterol 50 mg/dL (60-100); LDL Cholesterol Calculated 88 mg/dL (50-129); Magnesium 1.8 mg/dL (1.7-2.3); Osmolality Calculated 290 mOsm/kg (285-295); Phosphorus 4.8 mg/dL (2.5-4.5); Potassium 4.2 mmol/L (3.5-5.1); Sodium 140 mmol/L (136-145); Total Bilirubin 0.2 mg/dL (0.15-1.2); Total Protein 6.5 g/dL (6.6-8.7); Triglycerides 86 mg/dL (0-150); VLDL Cholestrol Calculation 17 mg/dL (0-30)
[2021-03-19 08:29] LABS: Estmated Average Glucose 94; Hemoglobin A1C 4.9 % (4.0-6.0)
--- NOTE | 2021-03-19 08:57 | PM.PN ---
Subjective Subjective: Interval history: Patient underwent coronary angiogram today. No significant coronary artery disease. LV gram showed normal LV systolic function. She is denying any current ongoing chest pain. Vitals/I&O/Wt Last Vital Signs Temp 98.0 F 03/19/21 04:00 Pulse 86 03/19/21 06:00 Resp 18 03/19/21 04:00 BP 136/81 03/19/21 04:00 Pulse Ox 98 03/19/21 04:00 03/18/21 03/19/21 03/19/21 22:59 06:59 14:59 Intake Total 78.333 / 78.333 Output Total 600 / 600 Balance 78.333 / 78.333 -600 / -521.667 Weight last 48 hrs Weight 166 lb 1.6 oz Weight 150 lb Physical Exam Narrative: EXAM NARRATIVE: GENERAL: Patient is alert, awake and oriented x3. [] NECK: No jugular vein distension. [] HEENT: No cyanosis. No icterus. No pallor. [] HEART: Regular S1 and S2. No murmur, rub or gallop. [] LUNGS: Clear to auscultate bilaterally. [] ABDOMEN: Soft, nontender and nondistended. Positive bowel sounds. No guarding, rebound or tenderness. [] CENTRAL NERVOUS SYSTEM: Grossly nonfocal. [] EXTREMITIES: Lower extremities with 1+ edema bilaterally. Pulses palpable in the lower extremities, both dorsalis pedis and posterior tibial. [] Data : 03/19/21 06:16 03/19/21 06:16 A&P Assessment and plan (1) Smoker: Status: Acute (2) COPD (chronic obstructive pulmonary disease): Status: Acute (3) Chest pain: Status: Acute Patient underwent coronary angiogram today that showed no significant obstructive coronary artery disease. Her symptoms likely from a coronary spasm versus microvascular dysfunction. We can initiate low-dose amlodipine and Imdur. Continue aspirin. Obtain echocardiogram. Thank you for involving us with care of this patient. Patient is stable to be discharged from cardiology standpoint with outpatient follow-up. Please call with questions. Attestations Medical Necessity Statement*: Care expected to cross 2 midnights. Coding Level of Care Code Acute Insurance Healthcare Consultant for Kanwal Fwhernan Diagnoses Smoker F17.200 COPD (chronic obstructive pulmonary disease) J44.9 Chest pain R07.9
[2021-03-19] MEDS: multivitamin therapeutic Tablet 1 TAB PO (09:34)
[2021-03-19] MEDS: aspirin 81 mg EC Tablet PO (09:35)
[2021-03-19] MEDS: clopidogrel 75 mg Tablet PO (09:35)
[2021-03-19] MEDS: thiamine 100 mg Tablet PO (09:35)
[2021-03-19] MEDS: famotidine 20 mg Tablet PO (09:35)
[2021-03-19] MEDS: folic acid 1 mg Tablet PO (09:35)
--- NOTE | 2021-03-19 11:45 | PM.DCS ---
Discharge Providers Date of Admission: 03/18/21 17:49 Date of Discharge: March 19, 2021 Attending Provider at Admission: Adrián Khan MD Attending Provider at Discharge: Adrián Khan MD Consults: Cardiology: Dr. Hartman Primary Care Provider: Jodie Stapleton MD Diagnoses at Discharge Discharge Diagnosis (1) Unstable angina pectoris: Status: Acute (2) COPD (chronic obstructive pulmonary disease): Status: Acute (3) Smoker: Status: Acute Reason for Visit Reason for Visit: left shoulder pain Hospital Course Hospital Course Paloma Del Castillo is a 60 year old female with past medical history of COPD, unstable angina followed up with Dr. Rojas. She saw Dr. Arita yesterday and the plan was to take her to cardiac cath on sunday with advised to come to the ER if she has any chest pain over the weekend. Today morning when patient woke up she had pain in between her shoulder blades going up to jaw not subsiding for because with nitro so she presented to the ER. In the ER she was started on a nitro paste still continued to have jaw pain on and off. Patient denies any nausea, vomiting, headache, dizziness, palpitation, difficulty in breathing. Patient has not had these, symptoms in the past. For the first time the pain started around 4 days ago. She denies any significant family history of heart problems. She is a current smoker and smokes up to 2 packs a day and trying to cut down. She states she consumes half a can of liquor every day. She denies of having any symptoms in the past related to alcohol withdrawal or alcohol seizures. On examination she was saturating 97% on room air with heart rate of 74 bpm blood pressure 110 systolic. She had a Nitropaste on. Blood work in the ER showed white and a 5.8, hemoglobin of 16, platelet count of 284, sodium 138, chloride of 101, carbon dioxide of 21, creatinine 0.6, AST/ALT of 15/12, alkaline phosphatase of 127, baseline troponin of 6. Patient's U tox in November was negative with a positive alcohol of 84 in November. EKG in the ER shows normal sinus rhythm at [address]-T changes in inferior lateral leads. Patient was admitted to the hospital for further management of possible unstable angina. Patient underwent cardiac catheterization on February 2016 which showed known obstructive CAD. Concern is that patient's pain is most likely secondary to vasospastic angina versus GERD. Patient has been counseled in detail about making sure that she is walking around or sitting up for at least 40 to 45 minutes after having her meals. She has been counseled in detail for need of abstinence from alcohol. She is been discharged on low-dose amlodipine for possible vasospastic angina and famotidine 20 mg daily for GERD with above advices. She is to follow-up with her primary care provider within next 2 weeks. Echocardiogram has been done and the results are awaited. She is to follow-up with her primary care provider regarding the results of echocardiogram. Physical Exam Narrative: EXAM NARRATIVE: General: No acute distress, AO x3 HEENT: PERRLA, pupils bilaterally equal and reactive Chest: Normal vesicular breath sounds, no added sounds, equal good air entry bilaterally CVS: S1-S2 regular, no murmurs, no tachycardia, no gallops, no rubs Abdomen: Soft, nontender, no organomegaly, bowel sounds present Neuro: No focal deficits, no facial deformity, AO x3, power 5/5 in all limbs Discharge Data Data Completed and Pending: Completed Studies During Hospitalization Category Date Time Status XR chest 1V meena ble [id number] Stat Exams 03/18/21 14:16 Completed Pending at discharge Category Date Time Status SEA CAPTAIN request for service Routin e Exams 03/19/21 06:57 Ordered CV echo complete* [id number] Routine Ultrasound 03/19/21 06:00 Ordered Labs from last 24 hours 03/19/21 03/19/21 03/19/21 06:16 06:16 06:16 WBC 5.3 RBC 4.33 Hgb 14.1 Hct 43.1 MCV 99.5 H MCH 32.6 MCHC 32.7 RDW 13.2 Plt Count 240 MPV 11.1 H Neut % (Auto) 61.6 Lymph % (Auto) 27.6 Owsley % (Auto) 6.8 Eos % (Auto) 3.0 Baso % (Auto) 0.6 Neut # (Auto) 3.26 Lymph # (Auto) 1.5 Owsley # (Auto) 0.4 Eos # (Auto) 0.2 Baso # (Auto) 0.0 Nucleated RBC % (a uto) 0 Nucleated RBCs # 0.0 PT INR D-Dimer Sodium 140 Potassium 4.2 Chloride 104 Carbon Dioxide 25 Anion Gap 15.2 BUN 13 Creatinine 0.5 GFR Calculation 125.0 Glucose 91 Estimat Average Gl ucose 94 Hemoglobin A1c 4.9 Calculated Osmolal ity 290 Calcium 8.7 Phosphorus 4.8 H Magnesium 1.8 Iron TIBC % Saturation Unsat Iron Binding Total Bilirubin 0.2 AST 13 ALT 10 Alkaline Phosphata se 108 H Creatine Kinase Troponin T Baselin e Troponin T 120 Min [place] Delta Troponin T Troponin T Hi Sens 6Hr Troponin T Hi Sens 6Hr Delta Total Protein 6.5 L Albumin 4.0 Globulin 2.5 Triglycerides 86 Cholesterol 155 LDL Cholesterol, C alc 88 Total VLDL Cholest gerson 17 HDL Cholesterol 50 L Cholesterol/HDL Ra laura 3.10 Procalcitonin TSH Urine Color Urine Appearance Urine pH Ur Specific Gravit y Urine Protein Urine Glucose (UA) Urine Ketones Urine Blood Urine Nitrate Urine Bilirubin Urine Urobilinogen Ur Leukocyte Shannan ase Urine RBC Urine WBC Ur Squamous Epith Cells Amorphous Sediment Urine Bacteria Ur Random Sodium Ur Random Potassiu m Ur Random Chloride Urine Opiates Scre en Ur Barbiturates Sc reen Ur Phencyclidine S crn Ur Amphetamines Sc reen U Benzodiazepines Scrn Urine Cocaine Scre en U Marijuana (THC) Screen Ethyl Alcohol 03/19/21 03/19/21 03/18/21 02:35 02:35 21:12 WBC RBC Hgb Hct MCV MCH MCHC RDW Plt Count MPV Neut % (Auto) Lymph % (Auto) Owsley % (Auto) Eos % (Auto) Baso % (Auto) Neut # (Auto) Lymph # (Auto) Owsley # (Auto) Eos # (Auto) Baso # (Auto) Nucleated RBC % (a uto) Nucleated RBCs # PT INR D-Dimer Sodium Potassium Chloride Carbon Dioxide Anion Gap BUN Creatinine GFR Calculation Glucose Estimat Average Gl ucose Hemoglobin A1c Calculated Osmolal ity Calcium Phosphorus Magnesium Iron TIBC % Saturation Unsat Iron Binding Total Bilirubin AST ALT Alkaline Phosphata se Creatine Kinase Troponin T Baselin e Troponin T 120 Min [place] Delta Troponin T Troponin T Hi Sens 6Hr 6.00 Troponin T Hi Sens 6Hr Delta 0 Total Protein Albumin Globulin Triglycerides Cholesterol LDL Cholesterol, C alc Total VLDL Cholest gerson HDL Cholesterol Cholesterol/HDL Ra laura Procalcitonin TSH Urine Color Yellow Urine Appearance Clear Urine pH 5 Ur Specific Gravit y 1.015 Urine Protein Neg Urine Glucose (UA) Norm Urine Ketones Negative Urine Blood 2+ H Urine Nitrate Negative Urine Bilirubin Neg Urine Urobilinogen 1 H Ur Leukocyte Shannan ase Negative Urine RBC 0-4 H Urine WBC None Ur Squamous Epith Cells None Amorphous Sediment Not Reportable Urine Bacteria Trace Ur Random Sodium 114 Ur Random Potassiu m 32 Ur Random Chloride 80 Urine Opiates Scre en Negative Ur Barbiturates Sc reen Negative Ur Phencyclidine S crn Negative Ur Amphetamines Sc reen Negative U Benzodiazepines Scrn Negative Urine Cocaine Scre en Negative U Marijuana (THC) Screen Negative Ethyl Alcohol 03/18/21 03/18/21 03/18/21 17:00 14:22 14:22 WBC RBC Hgb Hct MCV MCH MCHC RDW Plt Count MPV Neut % (Auto) Lymph % (Auto) [place] % (Auto) Eos % (Auto) Baso % (Auto) Neut # (Auto) Lymph # (Auto) [place]wsley # (Auto) Eos # (Auto) Baso # (Auto) Nucleated RBC % (a uto) Nucleated RBCs # PT INR D-Dimer Sodium Potassium Chloride Carbon Dioxide Anion Gap BUN Creatinine GFR Calculation Glucose Estimat Average Gl ucose Hemoglobin A1c Calculated Osmolal ity Calcium Phosphorus Magnesium Iron 120 TIBC 327 % Saturation 36.6 Unsat Iron Binding 207 Total Bilirubin AST ALT Alkaline Phosphata se Creatine Kinase Troponin T Baselin e 6 Troponin T 120 Min [place] 6.00 Delta Troponin T 0 Troponin T Hi Sens 6Hr Troponin T Hi Sens 6Hr Delta Total Protein Albumin Globulin Triglycerides Cholesterol LDL Cholesterol, C alc Total VLDL Cholest gerson HDL Cholesterol Cholesterol/HDL Ra laura Procalcitonin 0.02 TSH 1.75 Urine Color Urine Appearance Urine pH Ur Specific Gravit y Urine Protein Urine Glucose (UA) Urine Ketones Urine Blood Urine Nitrate Urine Bilirubin Urine Urobilinogen Ur Leukocyte Shannan ase Urine RBC Urine WBC Ur Squamous Epith Cells Amorphous Sediment Urine Bacteria Ur Random Sodium Ur Random Potassiu m Ur Random Chloride Urine Opiates Scre en Ur Barbiturates Sc reen Ur Phencyclidine S crn Ur Amphetamines Sc reen U Benzodiazepines Scrn Urine Cocaine Scre en U Marijuana (THC) Screen Ethyl Alcohol 55 H 03/18/21 03/18/21 03/18/21 14:22 14:22 14:00 WBC 5.8 RBC 4.84 Hgb 16.0 H Hct 47.0 MCV 97.1 MCH 33.1 MCHC 34.0 RDW 13.2 Plt Count 284 MPV 11.1 H Neut % (Auto) 57.8 Lymph % (Auto) 31.9 Owsley % (Auto) 7.1 Eos % (Auto) 2.6 Baso % (Auto) 0.3 Neut # (Auto) 3.35 Lymph # (Auto) 1.9 [place]wsley # (Auto) 0.4 Eos # (Auto) 0.2 Baso # (Auto) 0.0 Nucleated RBC % (a uto) 0 Nucleated RBCs # 0.0 PT 12.80 INR 0.93 D-Dimer 0.40 Sodium 138 Potassium 4.5 Chloride 101 Carbon Dioxide 21 L Anion Gap 20.5 H BUN 8 Creatinine 0.6 GFR Calculation 101.3 Glucose 73 Estimat Average Gl ucose Hemoglobin A1c Calculated Osmolal ity 283 L Calcium 9.2 Phosphorus Magnesium Iron TIBC % Saturation Unsat Iron Binding Total Bilirubin 0.2 AST 15 ALT 12 Alkaline Phosphata se 127 H Creatine Kinase 57 Troponin T Baselin e Troponin T 120 Min [place] Delta Troponin T Troponin T Hi Sens 6Hr Troponin T Hi Sens 6Hr Delta Total Protein 7.6 Albumin 4.9 Globulin 2.7 Triglycerides Cholesterol LDL Cholesterol, C alc Total VLDL Cholest gerson HDL Cholesterol Cholesterol/HDL Ra laura Procalcitonin TSH Urine Color Urine Appearance Urine pH Ur Specific Gravit y Urine Protein Urine Glucose (UA) Urine Ketones Urine Blood Urine Nitrate Urine Bilirubin Urine Urobilinogen Ur Leukocyte Shannan ase Urine RBC Urine WBC Ur Squamous Epith Cells Amorphous Sediment Urine Bacteria Ur Random Sodium Ur Random Potassiu m Ur Random Chloride Urine Opiates Scre en Ur Barbiturates Sc reen Ur Phencyclidine S crn Ur Amphetamines Sc reen U Benzodiazepines Scrn Urine Cocaine Scre en U Marijuana (THC) Screen Ethyl Alcohol Addt'l Data from Hospital Stay: Laboratory Results WBC 5.3 10^3/uL (4.0- 10.0) 03/19/21 06:16 RBC 4.33 10^6/uL (4.1 -5.3) 03/19/21 06:16 Hgb 14.1 g/dL (11.5-1 5.3) 03/19/21 06:16 Hct 43.1 % (37.0-47.0 ) 03/19/21 06:16 MCV 99.5 fL (81-99) H 03/19/21 06:16 MCH 32.6 pg (28.0-34. 0) 03/19/21 06:16 MCHC 32.7 g/dL (30.0-3 6.0) 03/19/21 06:16 RDW 13.2 % (12.1-15.1 ) 03/19/21 06:16 Plt Count 240 10^3/cmm (130 -400) 03/19/21 06:16 MPV 11.1 fL (7.4-10.4 ) H 03/19/21 06:16 Neut % (Auto) 61.6 % 03/19/21 06:16 Lymph % (Auto) 27.6 % 03/19/21 06:16 [place] % (Auto) 6.8 % 03/19/21 06:16 Eos % (Auto) 3.0 % 03/19/21 06:16 Baso % (Auto) 0.6 % 03/19/21 06:16 Neut # (Auto) 3.26 10^3/uL (1.8 -7.7) 03/19/21 06:16 Lymph # (Auto) 1.5 10^3/uL (0.8- 4.8) 03/19/21 06:16 [place]wsley # (Auto) 0.4 10^3/uL (0.2- 0.9) 03/19/21 06:16 Eos # (Auto) 0.2 10^3/uL (0.0- 0.8) 03/19/21 06:16 Baso # (Auto) 0.0 10^3/uL (0.0- 0.1) 03/19/21 06:16 Nucleated RBC % (a uto) 0 % 03/19/21 06:16 Nucleated RBCs # 0.0 /100WBC 03/19/21 06:16 PT 12.80 SECONDS (12 .1-14.9) 03/18/21 14:00 INR 0.93 (0.8-1.2) 03/18/21 14:00 D-Dimer 0.40 ug/mIFEU (0- 0.59) 03/18/21 14:00 Sodium 140 mmol/L (136-1 45) 03/19/21 06:16 Potassium 4.2 mmol/L (3.5-5 .1) 03/19/21 06:16 Chloride 104 mmol/L (98-10 7) 03/19/21 06:16 Carbon Dioxide 25 mmol/L (22-29) 03/19/21 06:16 Anion Gap 15.2 (5-19) 03/19/21 06:16 BUN 13 mg/dL (8-23) 03/19/21 06:16 Creatinine 0.5 mg/dL (0.5-0. 9) 03/19/21 06:16 GFR Calculation 125.0 mL/min (90- 130) 03/19/21 06:16 Glucose 91 mg/dL (65-115) 03/19/21 06:16 Estimat Average Gl ucose 94 03/19/21 06:16 Hemoglobin A1c 4.9 % (4.0-6.0) 03/19/21 06:16 Calculated Osmolal ity 290 mOsm/kg (285- 295) 03/19/21 06:16 Calcium 8.7 mg/dL (8.5-10 .5) 03/19/21 06:16 Phosphorus 4.8 mg/dL (2.5-4. 5) H 03/19/21 06:16 Magnesium 1.8 mg/dL (1.7-2. 3) 03/19/21 06:16 Iron 120 ug/dL (37-145 ) 03/18/21 14:22 TIBC 327 mcg/dl 03/18/21 14:22 % Saturation 36.6 % (20-50) 03/18/21 14:22 Unsat Iron Binding 207 ug/dL (112-34 7) 03/18/21 14:22 Total Bilirubin 0.2 mg/dL (0.15-1 .2) 03/19/21 06:16 AST 13 U/L (0-32) 03/19/21 06:16 ALT 10 U/L (0-33) 03/19/21 06:16 Alkaline Phosphata se 108 IU/L (35-105) H 03/19/21 06:16 Creatine Kinase 57 U/L (26-192) 03/18/21 14:22 Troponin T Baselin e 6 ng/L (0-10) 03/18/21 14:22 Troponin T 120 Min [place] 6.00 ng/L (0-10) 03/18/21 17:00 Delta Troponin T 0 ABS# (0-10) 03/18/21 17:00 Troponin T Hi Sens 6Hr 6.00 ng/L (0-10) 03/18/21 21:12 Troponin T Hi Sens 6Hr Delta 0 ng/L (0-12) 03/18/21 21:12 Total Protein 6.5 g/dL (6.6-8.7 ) L 03/19/21 06:16 Albumin 4.0 g/dL (3.5-5.2 ) 03/19/21 06:16 Globulin 2.5 g/dL (1.3-4.6 ) 03/19/21 06:16 Triglycerides 86 mg/dL (0-150) 03/19/21 06:16 Cholesterol 155 mg/dL (0-200) 03/19/21 06:16 LDL Cholesterol, C alc 88 mg/dL (50-129) 03/19/21 06:16 Total VLDL Cholest gerson 17 mg/dL (0-30) 03/19/21 06:16 HDL Cholesterol 50 mg/dL (60-100) L 03/19/21 06:16 Cholesterol/HDL Ra laura 3.10 mg/dL (0.0-4 .40) 03/19/21 06:16 Procalcitonin 0.02 ng/mL (0-0.5 ) 03/18/21 14:22 TSH 1.75 uIU/mL (0.27 -4.20) 03/18/21 14:22 Urine Color Yellow (Yellow) 03/19/21 02:35 Urine Appearance Clear (CLEAR) 03/19/21 02:35 Urine pH 5 (5-7) 03/19/21 02:35 Ur Specific Gravit y 1.015 (1.005-1.0 30) 03/19/21 02:35 Urine Protein Neg (Negative) 03/19/21 02:35 Urine Glucose (UA) Norm (Normal) 03/19/21 02:35 Urine Ketones Negative (Negati ve) 03/19/21 02:35 Urine Blood 2+ (Negative) H 03/19/21 02:35 Urine Nitrate Negative (Negati ve) 03/19/21 02:35 Urine Bilirubin Neg (Negative) 03/19/21 02:35 Urine Urobilinogen 1 mg/dL (Negative ) H 03/19/21 02:35 Ur Leukocyte Shannan ase Negative (Negati ve) 03/19/21 02:35 Urine RBC 0-4 /hpf (0-2) H 03/19/21 02:35 Urine WBC None /hpf (0-5) 03/19/21 02:35 Ur Squamous Epith Cells None /hpf (0-5) 03/19/21 02:35 Amorphous Sediment Not Reportable 03/19/21 02:35 Urine Bacteria Trace /hpf (NONE) 03/19/21 02:35 Ur Random Sodium 114 mmol/L 03/19/21 02:35 Ur Random Potassiu m 32 mmol/L 03/19/21 02:35 Ur Random Chloride 80 mmol/L 03/19/21 02:35 Urine Opiates Scre en Negative ng/mL (N egative) 03/19/21 02:35 Ur Barbiturates Sc reen Negative ng/mL (N egative) 03/19/21 02:35 Ur Phencyclidine S crn Negative ng/mL (N egative) 03/19/21 02:35 Ur Amphetamines Sc reen Negative ng/mL (N egative) 03/19/21 02:35 U Benzodiazepines Scrn Negative ng/mL (N egative) 03/19/21 02:35 Urine Cocaine Scre en Negative ng/mL (N egative) 03/19/21 02:35 U Marijuana (THC) Screen Negative ng/mL (N egative) 03/19/21 02:35 Ethyl Alcohol 55 mg/dL (0-10) H 03/18/21 14:22 Impressions Chest X-Ray 03/18/21 14:16 Impression: Negative chest. Vitals: Last Vital Signs Temp 98.0 F 03/19/21 04:00 Pulse 86 03/19/21 06:00 Resp 18 03/19/21 04:00 BP 136/81 03/19/21 04:00 Pulse Ox 98 03/19/21 04:00 Discharge Plan Discharge Patient Disposition: Home Condition: Stable Prescriptions: New aspirin 81 mg Tablet,Delayed Release (Dr/Ec) 81 mg PO DAILY Qty: 30 RF: 0 famotidine 20 mg Tablet 20 mg PO BID Qty: 60 RF: 0 Thera 400 mcg Tablet 1 tab PO DAILY Qty: 30 RF: 0 amlodipine 5 mg tablet 5 mg PO DAILY Qty: 30 RF: 0 Continued isosorbide mononitrate 30 mg tablet extended release 24 hr 30 mg PO QAM RF: 0 hydroxyzine pamoate 25 mg capsule 25 mg PO Q4H PRN (Reason: Anxiety) RF: 0 albuterol sulfate [Ventolin HFA] 90 mcg/actuation HFA aerosol inhaler 1 inh inhalation QID PRN (Reason: Shortness Of Breath) RF: 0 sumatriptan succinate 50 mg tablet 50 mg PO PRN MDD 2 TABS RF: 0 paroxetine HCl 20 mg tablet 20 mg PO BEDTIME RF: 0 ibuprofen 200 mg Tablet 800 mg PO PRN RF: 0 Advair Diskus 100-50 mcg/dose blister with device 1 ea INHALATION BID RF: 0 nitroglycerin [Nitrostat] 0.4 mg Tablet, Sublingual 0.4 mg SUBLINGUAL Q5M PRN (Reason: Chest Pain) RF: 0 Discharge Orders: Discharge Order (Routine); Ordered 03/19/21 Ordered By: Adrián Khan Referrals: Jodie Stapleton MD [Primary Care Provider] - 2 weeks ([facility] will be calling to schedule a Hospital followup with Dr. Stapleton to be seen in 2 weeks. If you don't hear from them by Sunday, please give them a call. Thank you) Renetta Machado FNP [Nurse Practitioner] - 7-10 days ([facility] will be calling to schedule a post procedure followup with KARRI Joy to be seen in 7 to 10 days. If you do not hear from them by Sunday, please give them a call. Thank you) Discharge Diet: Cardiac Discharge Activity: Resume usual activity Patient Instructions: Famotidine (By mouth), Aspirin (By mouth), Multivitamins with Minerals (By mouth), Amlodipine (By mouth), Vitamin Combination, Adult Formula (By mouth), Vitamin D (By mouth), How to Stop Smoking (DC), Cigarette Smoking and Your Health (GEN), Opioid Safety, Post Angiogram Home Care Instructions Activity Restrictions/Additional Instructions: Patient has been counseled in detail about making sure that she is walking around or sitting up for at least 40 to 45 minutes after having her meals. She has been counseled in detail for need of abstinence from alcohol. She is been discharged on low-dose amlodipine for possible vasospastic angina and famotidine 20 mg daily for GERD with above advices. She is to follow-up with her primary care provider within next 2 weeks. Echocardiogram has been done and the results are awaited. She is to follow-up with her primary care provider regarding the results of echocardiogram. Discharge Attestations Time Spent in Discharge Care*: greater than 30 min Specific Discharge Activities: educating patient, educating and/or supporting family/caregiver, discussing with pcp/other providers, discussing with employment case manager/social workers/dc planners, documenting/other paperwork and evaluating patient/reviewing data Time Spent in Smoking Cessation: more than 10 minutes Status at Discharge: Cognitive status at discharge: cognitively intact, Behavioral status at discharge: cooperative, Functional status at discharge: independent ambulation Overall status at discharge: patient is back to baseline Quality Metrics Clinical Quality Measures During this hospital stay, did patient experience: None Coding Level of Care Code Acute g DC note Diagnoses Unstable angina pectoris I20.0 COPD (chronic obstructive pulmonary disease) J44.9 Smoker F17.200
[2021-03-19 12:00] VITALS: BP 112/77; PULSE 68; RESP 18; TEMP 37.1; O2SAT 95
[2021-03-19 13:54] VITALS: BP 112/77; PULSE 68; RESP 18; TEMP 37.1; O2SAT 95
[2021-03-19 14:00] VITALS: PULSE 72
--- NOTE | 2021-03-19 14:56 | PC.NURSE ---
received from cardiac logging rafter laborer at 0825.report received.pt was alert and awake and oriented x 4.sr on monitor.right radial tr band on and inflated.right hand is warm to touch and with brisk capillary refill.palpable radial pulse noted distal to tr band.no hematoma noted.instructed in activity restrictions,s/p radial artery procedure..and instructed to notify staff for any bledding,pain,numbness..or for any concerns at all.pt verb understanding of instructions.
--- NOTE | 2021-03-19 15:32 | PC.NURSE ---
tr band slowly deflated over several hours.tr band removed at 1400.no hematoma noted.right hand remains warm to touch and with brisk capillary refill.site dressed with 2x2 gauze and secured with biocclusive drsg.instructed in activity restrictions s/p tr band removal...and instructed to notify staff for any bleeding,pain,numbness..or for any concerns at all.pt verb understanding of instructions.
--- NOTE | 2021-03-19 15:36 | PC.NURSE ---
discharge instructions given and explained.unable to provide meds to beds..due to pharmacy closed.will obtain from [facility] [employer] [facility].discharged via w/c to exit at 1530.spouse to drive pt home.
--- NOTE | 2021-03-21 18:16 | PC.RESP ---
Smoking Cessation information sent to patient.
== END 2021-03-19 15:30 | disposition home or self-care (01) | DRG 287 ==
LOC: ER 15:33 → MEDSURG 18:10 → CSU 03-19 08:13
PROVIDERS: Internal Medicine; Admitting Provider Student in an Organized Health Care Education/Training Program; Emergency Provider Family Medicine; PCP Family Medicine; Visit Provider Student in an Organized Health Care Education/Training Program
PROC: 4A023N7 Measurement of Cardiac Sampling and Pressure, Left Heart, Percutaneous Approach (ICD-10-PCS; principal; 2021-03-19 07:30)
DX: I25.111 Atherosclerotic heart disease of native coronary artery with angina pectoris with documented spasm (principal); M25.512 Pain in left shoulder; J44.9 Chronic obstructive pulmonary disease, unspecified; F17.210 Nicotine dependence, cigarettes, uncomplicated; F10.10 Alcohol abuse, uncomplicated; K21.9 Gastro-esophageal reflux disease without esophagitis; Z79.51 Long term (current) use of inhaled steroids
CPT/HCPCS: 36415; 71045; 80053; 80061; 80306; 80307; 81001; 82436; 82550; 83036; 83540; 83550; 83735; 84100; 84133; 84145; 84300; 84443; 84484; 85025; 85378; 85610; 93005; 93306; 93452; 94640; 94664; 96372; C1769; C1887; C1894; J1644; J1650; J2250; J3010; J3490; J7030; Q0163; Q9967